=== PATIENT | female | born 1945 | race Caucasian/White ===

== ENCOUNTER → 2019-05-19 12:27 | Outpatient (CLI) | payer MEDICARE, OTHER, SELFPAY ==
--- NOTE | 2019-05-19 | DI.US.S_ITS ---
PROCEDURE: US CAROTID DOPPLER BI INDICATIONS: PAROXYSMAL ATRIAL FIBRILATION TECHNIQUE: Color and pulse Doppler interrogation was performed of both carotid systems, with image documentation and velocity measurements. COMPARISON: None. FINDINGS: Stenosis calculations are based on SRU ([employer] in [employer]) criteria. Right side: Brachial blood pressure: 128/72 mm Hg. Common carotid artery peak systolic velocity: 53 cm/sec. Internal carotid artery peak systolic velocity: 42 cm/sec. Internal carotid artery end diastolic velocity: 17 cm/sec. External carotid artery peak systolic velocity: 33 cm/sec. ICA/CCA peak systolic ratio: 0.8. Zhu scale imaging description: No abnormality seen. Percent internal carotid artery stenosis: None found. Vertebral artery: Flow direction is antegrade. Left side: Brachial blood pressure: 119/77 mm Hg. Common carotid artery peak systolic velocity: 66 cm/sec. Internal carotid artery peak systolic velocity: 39 cm/sec. Internal carotid artery end diastolic velocity: 18 cm/sec. External carotid artery peak systolic velocity: 46 cm/sec. ICA/CCA peak systolic ratio: 0.6. Zhu scale imaging description: No abnormality seen Percent internal carotid artery stenosis: None found. Vertebral artery: Flow direction is antegrade. IMPRESSION: Normal bilaterally. Dictated by: Primitivo De La Rosa M.D. on 05/19/2019 at 15:33 Approved by: Primitivo De La Rosa M.D. on 05/19/2019 at 15:34
== END ==
PROVIDERS: PCP Specialist; Referring Provider Internal Medicine Cardiovascular Disease; Visit Provider Internal Medicine Cardiovascular Disease
DX: I48.0 Paroxysmal atrial fibrillation (principal); G47.00 Insomnia, unspecified; R91.1 Solitary pulmonary nodule; E78.5 Hyperlipidemia, unspecified
CPT/HCPCS: 93880